=== PATIENT | male | born 1960 | race American Indian/Alaskan Native ===

== ENCOUNTER 2022-03-09 10:11 | Inpatient (IN) | payer MEDICARE ==
--- NOTE | 2022-03-09 10:24 | Emergency Department Report ---
HPI - General Time Seen by Provider: 03/09/22 10:21 - HPI HPI: Charge nurse triage The patient is a 61-year-old male present with a chief complaint of left-sided weakness and aphasia. Per EMS the patient's symptoms were noted to start 09:00 this morning and they include left-sided weakness with aphasia. Per EMS the patient is able to express "yes" and "no" only. ED Past Medical Hx - Past Medical History Hx Hypertension: Yes - Family History Family history: no significant - Social History Smoking Status: Unknown if ever smoked Substance Use Type: None ED Review of Systems ROS: Stated complaint: POSSIBLE STROKE Other details as noted in HPI Constitutional: no symptoms reported Eyes: denies: eye pain Respiratory: no symptoms reported Cardiovascular: denies: chest pain Endocrine: no symptoms reported Physical Exam - Physical Exam Vital Signs: Vital Signs 03/09/22 03/09/22 03/09/22 10:42 10:46 10:54 Pulse Rate 70 89 Respiratory 10 L 23 Rate Blood Pressure 149/76 142/77 O2 Sat by Pulse Oximetry 03/09/22 03/09/22 03/09/22 10:55 11:00 11:08 Pulse Rate 87 78 93 H Respiratory 16 Rate Blood Pressure 142/77 142/77 O2 Sat by Pulse 99 Oximetry 03/09/22 11:15 Pulse Rate 92 H Respiratory 17 Rate Blood Pressure 145/87 O2 Sat by Pulse Oximetry Physical Exam: GENERAL: The patient is well-developed well-nourished male lying on stretcher aphasic. [] HEENT: Normocephalic. Atraumatic. Extraocular motions are intact. Patient has moist mucous membranes. NECK: Supple. Trachea midline CHEST/LUNGS: Clear to auscultation. There is no respiratory distress noted. HEART/CARDIOVASCULAR: Regular. There is no tachycardia. There is no gallop rub or murmur. ABDOMEN: Abdomen is soft, nontender. Patient has normal bowel sounds. There is no abdominal distention. SKIN: There is no rash. There is no edema. There is no diaphoresis. NEURO: The patient is awake and alert. Patient makes eye contact and acknowledges yes or no answers by shaking or nodding his head. The patient is cooperative. Cranial nerves II through XII grossly intact with exception of ri ght facial droop. Positive forehead sparing. MUSCULOSKELETAL: There is no evidence of acute injury. ED Course - Consultations Consultation #1: 03/09/22 10:46 Case discussed with tele-neurologist Dr. Barbosa- recommends tPA after confirming negative CT head with radiology 03/09/22 10:46 CT head discussed with radiologist-no evidence of hemorrhage ED Medical Decision Making - Lab Data Result diagrams: 03/09/22 Unknown 03/09/22 Unknown Laboratory Tests 03/09/22 03/09/22 03/09/22 Unknown Unknown Unknown WBC 6.6 RBC 4.77 Hgb 16.2 H Hct 47.2 H MCV 99 H MCH 34 H MCHC 34 RDW 15.6 H Plt Count 190 Lymph % (Auto) 22.1 Winston % (Auto) 8.8 H Eos % (Auto) 0.6 Baso % (Auto) 0.3 Lymph # (Auto) 1.5 Winston # (Auto) 0.6 Eos # (Auto) 0.0 Baso # (Auto) 0.0 Seg Neutrophils % 68.2 Seg Neutrophils # 4.5 PT 12.4 INR 0.84 L APTT 22.4 L Thrombin Time 13.9 L Sodium 135 L Potassium 3.9 Chloride 101.3 Carbon Dioxide 26 Anion Gap 12 BUN 7 L Creatinine 0.8 Estimated GFR > 60 BUN/Creatinine Ratio 9 Glucose 122 H Calcium 8.7 - EKG Data -: EKG Interpreted by [facility] EKG shows normal: sinus rhythm Rate: normal - EKG Data When compared to previous EKG there are: previous EKG unavailable Interpretation: other (No ischemic changes seen) - Differential Diagnosis CVA Critical care attestation.: If time is entered above; I have spent that time in minutes in the direct care o f this critically ill patient, excluding procedure time. ED Disposition Clinical Impression: Stroke Disposition: 09 ADMITTED INPATIENT Is pt being admited?: Yes Does the pt Need Aspirin: No Condition: Serious Time of Disposition: 11:24 (Care transferred to hospitalist (Dr. Hahn))
[2022-03-09] MEDS ORDERED: ALTEPLASE 100 MG INJ KIT ONE (10:39)
[2022-03-09] MEDS ORDERED: SODIUM CHLORIDE 0.9% 50 ML IVPB IV ONE (10:45)
[2022-03-09] MEDS ORDERED: ALTEPLASE 100 MG INJ KIT IV ONE ×2 (10:45)
--- NOTE | 2022-03-09 10:49 | Cat Scan Report ---
CT HEAD WITHOUT CONTRAST INDICATION : Left-sided weakness, aphasia. TECHNIQUE: Axial imaging performed from the skull apex through the skull base without the use of con trast. Sagittal and coronal reformatted images. All CT scans at this location are performed using C T dose reduction for AL[employer] by means of automated exposure control. COMPARISON: None FINDINGS: Parenchyma: No acute intracranial hemorrhage or parenchymal abnormality. No evidence for mass or ext ra-axial fluid collection. No chronic infarct. Ventricles: Ventricles are normal in size and appear symmetric. Bones: No acute osseous abnormality. Sinuses: Sinuses and mastoid air cells are clear. Soft tissues: Soft tissues including the orbits appear normal. IMPRESSION: No acute abnormality. CODE STROKE: Time of Communication (SCREW CUTTER/CDT): 0939 hours Licensed Practitioner Receiving Report: Dr. Ansari Signer Name: Joseph Rae Jr, MD Signed: 03/09/2022 10:45 AM Workstation Name: [id number]
--- NOTE | 2022-03-09 10:58 | Consultation ---
History of Present Illness History of present illness: [place] [facility] Consult Note # Demographics Consult Type: Acute Stroke Level 1 (0-4.5 hrs) Patient Location: Emergency Room First Name: Edgardo Last Name: Ivan Date of : 1960 Age: 61 Gender: Male Facility: [facility] Time of Initial Page (): 03/09/2022, 10:09 Time of Return Call (): 03/09/2022, 10:10 # HPI History: 61M with HTN, R BKA presents with difficulty breathing. At 0900, started having trouble speaking and feeling weak on the left with asymmetric smile. Last Known Normal: I have collected independent history specific to time last normal or last known well. We have collaborated with the provider and at this time, we have the most current timeline with the information that is available. Possible Thrombolytic candidate: not on warfarin or NOACs no intracranial hemorrhage history no recent major surgery no known active major internal bleeding no known blood disorders # Scores Time of exam and NIHSS (): 03/09/2022, 10:10 Level of Consciousness 1a: [0] = Alert; keenly responsive LOC Questions 1b: [0] = Answers both questions correctly LOC Commands 1c: [0] = Performs both tasks correctly Best Gaze 2: [1] = Partial gaze palsy Visual 3: [0] = No visual loss Facial Palsy 4: [2] = Partial paralysis Motor Arm Left 5a: [0] = No drift Motor Arm Right 5b: [0] = No drift Motor Leg Left 6a: [0] = No drift Motor Leg Right 6b: [0] UN = Amputation or joint fusion Limb Ataxia 7: [0] = Absent Sensory 8: [0] = Normal Best Language 9: [2] = Severe aphasia Dysarthria 10: [2] = Severe dysarthria Extinction and Inattention 11: [0] = No abnormality NIHSS Total: 7 # Data Time Head CT personally read by me (): 03/09/2022, 10:[address]: no bleed per radiologist read CTA Head: no large vessel occlusion preliminarily reviewed by me, please refer to radiology read for official reading CTA Neck: patent vessels preliminarily reviewed by me, please refer to radiology read for official reading # Assessment Impression: Ischemic Stroke (Acute) # Plan Thrombolytic/Intervention: IV Thrombolysis Thrombolytic Dosing: IV alteplase 0.9 mg/kg, max dose 90 mg; 10% of dose given over 1 minute IVP, remaining 90% given as infusion over 1 hour Intraarterial Exclusion: no large vessel occlusion (LVO) Time IV Thrombolytic Recommended ( Time): 03/09/2022, 10:33 Thrombolytic Administration Recommendations: I reviewed the risks/benefits/alternatives of IV thrombolytic therapy with the patient. They understand there is potential of life threatening hemorrhage from IV thrombolysis. I stated that I believe benefits outweighs risk. They wish to proceed with IV thrombolytic therapy. I have collected independent history specific to time last normal or last known well. We have collaborated with the ED provider and at this time, we have the most current timeline with the information that is available. BP goal< 180/105 for 24hrs post Thrombolytic administration Use Labetolol 10-20mg IV prn or Nicardipine gtt to maintain BP parameters No antiplatelets or anticoagulants for next 24 hrs unless indicated for emergent IA procedure or other life threatening situation ICU admission Call back if there is any decline in neurological condition Other: consult on-site neurology service for full work-up and evaluation recommendations I have discussed my recommendations with the referring provider Disposition: admit # Logistics Telemedicine: Interactive 2 way audio and visual telecommunication technology was utilized during this visit Electronically signed at 03/09/2022 10:57 ( Time) by Familia Laura MD Medications and Allergies Allergies Allergy/AdvReac Type Severity Reaction Status Date / Time No Known Allergies Allergy Verified 03/09/22 10:44
[2022-03-09 11:14] LABS: INR 0.84 (0.87-1.13)
[2022-03-09 11:15] LABS: BUN/Creatinine Ratio 9; Blood Urea Nitrogen 7 mg/dL (9-20); Calcium 8.7 mg/dL (8.4-10.2); Hemolysis Index 15; Partial Thromboplastin Time 22.4 Sec. (24.2-36.6); Thrombin Time 13.9 Sec. (15.1-19.6)
--- NOTE | 2022-03-09 11:16 | Cat Scan Report ---
CTA neck without and with intravenous contrast material CLINICAL HISTORY: Left-sided weakness, aphasia TECHNIQUE: Following acquisition of a timing bolus 0.625 mm thick contiguous axial scans were obtained from aort ic arch to the skull base during rapid bolus intravenous contrast infusion. In addition to evaluation of axial source images multiplanar reconstructions were produced and reviewed for this report. 3 michel ne MIP reconstructions were produced and reviewed. Contrast dose report: Omnipaque 350: 100 ml, administered intravenously All CT examinations performed at this facility utilize modulated dose reduction, iterative reconstruc tion or weight-based dosing, as appropriate, to obtain a radiation dose which is as low as can reason ably be achieved. FINDINGS: Thoracic aorta:No abnormalities are identified along the course of the thoracic aorta..The origins of the great vessels have an unremarkable appearance. Brachiocephalic artery, left common carotid arter y origin and left subclavian artery all have an unremarkable appearance. Right carotid artery: Calcified atherosclerotic plaque is observed at the right carotid bulb and leny g the course of the proximal portion of the R ICA. There is no associated stenosis. Right common pryor tid artery has an unremarkable appearance. Left carotid artery: Calcified atherosclerotic plaque is observed along the proximal and mid cervical segments of the LICA. There is no associated stenosis. Posterior circulation:The vertebral arteries have an unremarkable appearance. Both vertebral arteries contribute to the basilar wero study. y origin. The basilar artery has an unremarkable appearance. The degree of stenosis, if any, is determined utilizing NASCET like criteria. In this case there is no indication of hemodynamically significant stenosis at the carotid bifurcations or elsewhere. Evaluation of the nonvascular soft tissue structures reveal no abnormality. There is no indication of cervical lymphadenopathy. No abnormalities are seen along the course of the airway. Visualized porti ons of the parotid glands and the submandibular salivary glands have a normal appearance. Thyroid gla nd has a normal appearance. Evaluation of the lung apices reveals no evidence of lung nodule or infil trate. Evaluation of the cervical spine is remarkable for cervical spondylosis with loss of disc height and anterior osteophyte formation evident at the C4-5, C5-6 and C6-7 levels. There is no indication of ce ntral canal stenosis or neuroforaminal narrowing. IMPRESSION: 1. No indication of hemodynamically significant stenosis at the carotid bifurcations or elsewhere. Note: There is a 1 cm gap between the highest axial image on the CTA neck and the lowest axial image on the CTA examination. The reason for this is not known to me. CTA head with intravenous contrast CLINICAL HISTORY: Left-sided weakness, aphasia TECHNIQUE: 0.625 mm thick contiguous axial scans were obtained from the skull base to the skull vertex during r apid bolus administration of intravenous contrast material. Multiplanar reconstructions were produced in the coronal and sagittal planes. In addition 3 plane MIP instructions were produced and reviewed for this report. The axial source images and reconstructed images were reviewed for this report. CONTRAST DOSE REPORT: Omnipaque 350: 100 ml administered intravenously. All CT scans at this location are performed using CT dose reduction for [employer] by means of automated e xposure control. FINDINGS: Internal carotid arteries: Mildly calcified atherosclerotic plaque is seen along the course of the ca vernous segments of both internal carotid arteries. This extends up through the communicating segment s bilaterally. There is no indication of hemodynamically significant stenosis in this region. Middle cerebral arteries:Normal and symmetrical M1 segments of the middle cerebral arteries are demon strated. No abnormalities are seen on evaluation of the insular or opercular branches. Anterior cerebral arteries:Bilaterally symmetrical A1 segments are demonstrated. No abnormalities are seen along the course of the A2 segments or their visualized pericallosal branches. I do not identif y an anterior communicating artery. Vertebral arteries: Left vertebral artery is dominant. Both vertebral arteries contribute to the basi lar artery origin. Basilar artery:Basilar artery has an unremarkable appearance. Posterior cerebral arteries: origin of the right posterior cerebral artery is noted. A large le ft-sided posterior communicating artery is identified. Otherwise the posterior cerebral arteries have a normal and symmetrical appearance. [place]:Not intact. see above. Dural sinuses: Dural venous sinuses are well demonstrated on this exam. There is no evidence of dural sinus thrombosis. IMPRESSION: No indication of intercranial stenosis or large vessel occlusion. Note: There is a 1 cm gap between the highest axial image on the CTA neck and the lowest axial image on the CTA examination. The reason for this is not known to me. Signer Name: Angel Peña MD Signed: 03/09/2022 11:12 AM Workstation Name: [id number]
[2022-03-09 11:20] LABS: Basophils % (Auto) 0.3 % (0.0-1.8); Eosinophils % (Auto) 0.6 % (0.0-4.3); Hematocrit 47.2 % (35.5-45.6); Hemoglobin 16.2 gm/dl (11.8-15.2); Lymphocytes # (Auto) 1.5 K/mm3 (1.2-5.4); Lymphocytes % (Auto) 22.1 % (13.4-35.0); Mean Corpuscular HGB Conc 34 % (32-34); Mean Corpuscular Volume 99 fl (84-94); Monocytes # (Auto) 0.6 K/mm3 (0.0-0.8); Monocytes % (Auto) 8.8 % (0.0-7.3); Platelet Count 190 K/mm3 (140-440); Red Blood Count 4.77 M/mm3 (3.65-5.03); Red Cell Distribution Width 15.6 % (13.2-15.2)
--- NOTE | 2022-03-09 12:20 | Consultation ---
History of Present Illness Consult date: 03/09/22 Requesting physician: JORJE PERALTA Reason for consult: other (Acute CVA s/p tPA) History of present illness: PULMONARY/CCM CONSULT NOTE (Full dictation # [id number]) Please see dictated notes for full details Medications and Allergies Allergies Allergy/AdvReac Type Severity Reaction Status Date / Time No Known Allergies Allergy Verified 03/09/22 10:44 Physical Examination Vital signs: Vital Signs Pulse Resp 70 10 L 03/09/22 10:42 03/09/22 10:42 Results - Laboratory Findings CBC and BMP: 03/09/22 Unknown 03/09/22 Unknown PT/INR, D-dimer PT 12.4 Sec. (12.2-14.9) 03/09/22 Unknown INR 0.84 (0.87-1.13) L 03/09/22 Unknown Abnormal lab findings: Abnormal Labs 03/09/22 03/09/22 03/09/22 Unknown Unknown Unknown Hgb 16.2 H Hct 47.2 H MCV 99 H MCH 34 H RDW 15.6 H Garvin % (Auto) 8.8 H INR 0.84 L APTT 22.4 L Thrombin Time 13.9 L Sodium 135 L BUN 7 L Glucose 122 H
[2022-03-09] MEDS ORDERED: ONDANSETRON 4 MG/2 ML INJ IV PRN ×2 (14:52→15:36)
[2022-03-09] MEDS ORDERED: ACETAMINOPHEN 325 MG TAB PO PRN ×2 (14:52→15:36)
[2022-03-09] MEDS ORDERED: SODIUM CHLORIDE 0.9% 1000 ML 1,000 ML IV SCH (15:00)
[2022-03-09] MEDS ORDERED: MORPHINE 2 MG/1 ML INJ IV PRN (15:06)
[2022-03-09] MEDS ORDERED: METOCLOPRAMIDE 10 MG/2 ML INJ IV PRN (15:06)
[2022-03-09] MEDS ORDERED: oxyCODONE /ACETAMINOPHEN 5-325MG TAB PO PRN (15:06)
[2022-03-09] MEDS ORDERED: HYDROmorphone 0.5 MG/0.5 ML INJ IV PRN (15:36)
[2022-03-09] MEDS ORDERED: FAMOTIDINE 20 MG/2 ML INJ IV SCH (22:00)
[2022-03-09] MEDS ORDERED: diphenhydrAMINE 25 MG CAP PO PRN (22:02)
--- NOTE | 2022-03-10 03:31 | Consultation ---
DATE OF CONSULTATION: 03/09/2022 PULMONARY CRITICAL CARE CONSULT NOTE CONSULTING PHYSICIAN: Dr. Ansari, Emergency Room physician. REASON FOR CONSULTATION: Acute cerebrovascular accident, status post TPA administration. CHIEF COMPLAINT AND HISTORY OF PRESENT ILLNESS: As follows. The patient is a now 61-year-old obese male with past medical history according to him significant for hypertension, but also right lrjgb-uke-buyr amputation that the daughter says is due to an accident, and not as a result of diabetes or peripheral vascular disease. According to her, he was well last night and this morning he sent the grandkids off to school and he started having trouble around 9:00 a.m. He had called the family. His speech was mumbled. He became aphasic. He complained of weakness in the left side and he had a facial droop. Family very certain that they saw him well prior to 9:00 a.m. and as early as this morning when he sent the children to school. He was evaluated in the Emergency Room and amongst other things he had an NIHSS total score of about [address] scan of the head did not reveal any bleed. The CTA of the head and neck did not reveal any large vessel occlusion. He was diagnosed with acute CVA, deemed a candidate for tissue thromboplastin activator and received 0.9 mg/kg with a max dose of 90 mg. A 10% at the dose was given of 1 minute IV push, a part of the order and then the remaining as an infusion over 1 hour. Post-administration, I stopped by to see him. According to the nurse, he complained of a little bit of some numbness around the right side of his lip during the administration of the dose, but otherwise he has not had any progression. He denied any chest pains. He denied any prior palpitations. He denied being sick prior to this. He denies any tobacco use or abuse whatsoever and has not had any similar presentations like this. This is really as much of the history of presentation as I have. PAST MEDICAL HISTORY: As above, significant for hypertension and a right qvfzk-qyj-dvtw amputation. History of hyperlipidemia. PAST SURGICAL HISTORY: Right arwxa-klv-bouu amputation. MEDICATIONS: He was on at the time I stopped by to see him, according to the medication administration record included the following: He had received TPA and I believe he received 8.6 mg IV once and 77.2 mg IV drip. He received 50 mL of sodium chloride once, otherwise has not received any medication. ALLERGIES: No known drug allergies. DIET: Obese gentleman, acute weight loss or gain history is unknown. FAMILY AND SOCIAL HISTORY: Lives in the community. Denied alcohol, tobacco or illicit drug use or abuse per the daughter, I believe he was in the room. FAMILY HISTORY: Otherwise unknown. REVIEW OF SYSTEMS: Difficult to obtain secondary to patient's medical and mental condition. He denied any headache. He denied any cough. He denied any nausea or vomiting. Since he has been in the Emergency Room, no gross hematochezia or melena, no gross hematuria, no hematemesis, no hemoptysis, no witnessed seizures. Review of systems otherwise unobtainable or as in body of history above. PHYSICAL EXAMINATION: VITAL SIGNS: At presentation, he was afebrile. Pulse was 70, respiratory rate was 10. Blood pressure 149/76, O2 sats at the time I saw him were about 98% on room air. GENERAL: He is an elderly looking male. Normocephalic, atraumatic, talking to me with an obvious aphasia with normal respiratory effort at rest. HEAD, EYES, EARS, NOSE AND THROAT: Anicteric. No conjunctival erythema. Oropharynx is moist, no gross jugular venous distention, no thyromegaly and had a droop to the right side, I believe of his face. Grossly, there were no palpable lymph nodes in the supraclavicular or submandibular lymph node chains. NECK: No gross jugular venous distention, no thyromegaly. He does have a large neck circumference. LUNGS: Auscultation of both lung keyes unremarkable. Good bilateral air movement, slightly diminished breath sounds, otherwise no wheezing. HEART: Sounds 1 and 2 are heard at the time of my evaluation, regular rate and rhythm without overt rubs or murmurs. ABDOMEN: Soft, full, protuberant. Bowel sounds are positive, nontender, no palpable hepatosplenomegaly. EXTREMITIES: Without overt digital clubbing or cyanosis, no pedal edema, has a right itcge-wxy-kuwc amputation, left pedal pulses 2+. NEUROLOGIC: Pupils were equal, round, about 4 mm, reactive to light. Extraocular muscle movements were intact. His tongue deviated, I believe to the right side. He had spontaneous movements to all 4 extremities. No significant drift to his extremities. He did have a severe aphasia as well as a severe dysarthria. SKIN: Normal turgor in the areas I examined without overt cellulitis or rash. Please see the wound care nurses' notes for full description of his skin. PSYCHIATRIC: Mood was normal. Affect was a little bit inappropriate. He had some deficits to his judgment and insight. LABORATORY DATA: From my review are as follows. Laboratory data is pending and will be followed to include chemistries, coagulation parameters and CBC. I do believe these have been reviewed by the Emergency Room staff, but has not yet been updated to the system. RADIOGRAPHIC STUDIES: CT of the head were done. The CT of the head was read as no acute abnormality. CT angio of the head and neck did not reveal any hemodynamically significant stenosis, no large vessel intracranial stenosis or large vessel occlusion. ASSESSMENT: 1. Acute cerebrovascular accident, status post TPA. 2. History of hypertension. 3. History of hyperlipidemia. 4. Obesity. 5. Dysarthria. PLAN: He has received TPA. He will be observed in the Critical Care Unit at least 24 hours. Neurology consultation has been placed. Teleneurology. He will be seen by the neurologist later. Secondary prevention measures will be started right away. Blood pressure control. We await his lipid profile and this will be addressed as necessary. So far, no large vessel occlusion. He will need a swallow evaluation prior to feeding. He may well have passed a bedside dysphagia screen, but we need to be careful for aspiration. Oxygen will be offered as necessary to keep O2 sats greater than or equal to about 90%. Aspiration precautions will be maintained. He will be placed on GI prophylaxis with Pepcid. I will do IV Pepcid for now. DVT prophylaxis, on anticoagulation once the TPA period is over. Flu and pneumonia vaccination will be addressed per protocol. Tobacco abstinence and continued tobacco abstinence has been encouraged. Thank you very much for the consult. We will follow along and make further recommendations as picture progresses/becomes clearer. Hopefully, there is no further progression of the stroke. He is critically ill at risk of from neurologic system decompensation and hematologic system decompensation at this point and I spent about 35-40 minutes of critical care time without overlap and excluding any procedural time that may be necessary. TID: [id number] RECEIPT: [id number] CELESTE/DANA
[2022-03-10 05:10] LABS: Basophils % (Auto) 0.4 % (0.0-1.8); Eosinophils % (Auto) 0.5 % (0.0-4.3); Hematocrit 46.9 % (35.5-45.6); Hemoglobin 16.2 gm/dl (11.8-15.2); Lymphocytes # (Auto) 2.6 K/mm3 (1.2-5.4); Lymphocytes % (Auto) 41.5 % (13.4-35.0); Mean Corpuscular HGB Conc 35 % (32-34); Mean Corpuscular Volume 99 fl (84-94); Monocytes # (Auto) 0.7 K/mm3 (0.0-0.8); Monocytes % (Auto) 11.5 % (0.0-7.3); Platelet Count 193 K/mm3 (140-440); Red Blood Count 4.74 M/mm3 (3.65-5.03); Red Cell Distribution Width 15.5 % (13.2-15.2)
[2022-03-10 05:33] LABS: Alanine Aminotransferase 13 units/L (7-56); Albumin 3.9 g/dL (3.9-5); BUN/Creatinine Ratio 8; Blood Urea Nitrogen 6 mg/dL (9-20); Calcium 8.8 mg/dL (8.4-10.2); HDL Cholesterol 64 mg/dL (40-59); Hemolysis Index 9; LDL Cholesterol,Direct 80 mg/dL (50-130)
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
[2022-03-10] MEDS ORDERED: ASPIRIN 81 MG TAB CHEW PO SCH (11:00)
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
--- NOTE | 2022-03-10 15:47 | Cat Scan Report ---
CT HEAD WITHOUT CONTRAST INDICATION : 24 HRS post TPA. TECHNIQUE: Axial imaging performed from the skull apex through the skull base without the use of con trast. Sagittal and coronal reformatted images. All CT scans at this location are performed using C T dose reduction for ALARA by means of automated exposure control. COMPARISON: 03/09/2022 FINDINGS: Parenchyma: Negative diminished attenuation in the posterior left frontal lobe has developed measuri ng up to 4.4 x 3.5 x 2.5 cm consistent with an evolving infarct. Mild petechial hemorrhagic change marcos s developed at the infarct site. No large uncontained hemorrhage. The remaining brain density remains normal. No extra-axial fluid collection. Ventricles: Ventricles are normal in size and appear symmetric. Bones: No acute osseous abnormality. Sinuses: Sinuses and mastoid air cells are clear. Soft tissues: Soft tissues including the orbits appear normal. IMPRESSION: Evolving left frontal infarct as described. There is mild petechial hemorrhagic change at the infarct site. Signer Name: Joseph Rae Jr, MD Signed: 03/10/2022 3:42 PM Workstation Name: [id number]
--- NOTE | 2022-03-10 16:24 | Vascular Lab Report ---
DUPLEX DOPPLER ULTRASOUND CAROTID, BILATERAL INDICATION / CLINICAL INFORMATION: CVA. COMPARISON: CTA neck performed yesterday. FINDINGS: RIGHT CAROTID: Mild to moderate atherosclerotic plaque. - PLAQUE ESTIMATE (%): < 50% - CCA velocity: 95 cm/sec. - ICA peak systolic velocity: 76 cm/sec. - ICA/CCA PSV Ratio: 0.8 Right Vertebral Artery: Antegrade flow. LEFT CAROTID: Mild atherosclerotic plaque. - PLAQUE ESTIMATE (%): < 50% - CCA velocity: 87 cm/sec. - ICA peak systolic velocity: 88 cm/sec. - ICA/CCA PSV Ratio: 1.0 Left Vertebral Artery: Antegrade flow. IMPRESSION: 1. Right Internal Carotid Artery: Less than 50% diameter stenosis. 2. Left Internal Carotid Artery: Less than 50% diameter stenosis. Velocity criteria are extrapolated from diameter data as defined by the Society of Radiologists in Ul trasound Consensus Conference, Radiology 2003; 229;340-346. NO STENOSIS (NORMAL) - Plaque = none; ICA PSV < 125 cm/sec; ICA/CCA PSV Ratio < 2.0 <50% STENOSIS - Plaque < 50%; ICA PSV < 125 cm/sec; ICA/CCA PSV Ratio < 2.0 50-69% STENOSIS - Plaque > 50%; ICA PSV = 125-230 cm/sec; ICA/CCA PSV Ratio = 2.0-4.0 >70% BUT <100% STENOSIS - Plaque > 50%; ICA PSV > 230 cm/sec; ICA/CCA PSV Ratio > 4.0 NEAR OCCLUSION - Plaque = visible lumen; ICA PSV = high/low/none; ICA/CCA PSV Ratio = variable TOTAL OCCLUSION - Plaque = no lumen; ICA PSV = none; ICA/CCA PSV Ratio = N/A Scribed by: Nery Jain RDMS, RVT, RMSKS Scribed: 03/10/2022 2:15 PM I have reviewed the images, agree with this report, and edited this report as needed. Signer Name: Charles Hinson MD Signed: 03/10/2022 4:19 PM Workstation Name: [id number]
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
[2022-03-10] MEDS: FAMOTIDINE 20 MG TAB PO SCH (21:31)
[2022-03-10] MEDS ORDERED: ENOXAPARIN 40 MG/0.4 ML INJ SUB-Q SCH (22:00)
[2022-03-11 06:11] LABS: Hematocrit 47.6 % (35.5-45.6); Hemoglobin 16.3 gm/dl (11.8-15.2); Mean Corpuscular HGB Conc 34 % (32-34); Mean Corpuscular Volume 99 fl (84-94); Platelet Count 167 K/mm3 (140-440); Red Cell Distribution Width 15.4 % (13.2-15.2)
[2022-03-11 06:18] LABS: INR 0.94 (0.87-1.13)
[2022-03-11 06:25] LABS: BUN/Creatinine Ratio 8; Blood Urea Nitrogen 6 mg/dL (9-20); Hemolysis Index 8
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
--- NOTE | 2022-03-11 10:22 | Progress Note ---
Assessment and Plan Assessment and Plan Assessment and plan: 51-year-old -[place] male with past medical history of hypertension comes in for acute onset of left-sided weakness associated with aphasia which started 1 hour ago. Patient could not move left upper extremity and left lower extremity and left side of the face. Also not able to talk. Code stroke was initiated. Patient was given tPA in the emergency room because the patient was in the window period Of treatment. ED course: Patient has dramatic improvement in her left upper extremity and left lower ovary extremity weakness. Improved to near 5 by/5 power during my examination after 4 to 6 hours. Initially patient was totally paralyzed on the left side with left facial droop and aphasia. Patient able to tolerate with slight dysarthria. - Patient Problems # New onset of possibly right side weakness with aphasia ++ According to record it was left side weakness ? and aphasia improved after TPA ++ Today he is with residual right side weakness and expressive aphasia ++ sp TPA ++ initial NIH#7-- today is #4 +++ can not have MRI due to metal left chest region +++ CT brain and CTA brain and neck are unremarkable +++ LDL#80-- Lipitor 40 mg daily +++echo is pending +++ PT/ST evaluate +++ US carotid<50 % bilateral +++ Repeat CT brain-- showed left frontal new CVA with hemorrhagic t ransformation +++ Hold ASA and SQ heparine +++ Repaet CT brain am # Hypertension - Allow 24 hours of permissive HTN<220/110 - Adjust BP medication there after to <150/80 -Continue antihypertensives and adjust medications # Nicotine dependence -Patient counseled about stopping smoking -NicoDerm patch initiated -Alternatives of Chantix/Effexor/NicoDerm patch/nicotine gum offered # DVT prophylaxis -To start heparin from tomorrow -GI prophylaxis -Aspirin after review MRI brain /repeat CT brain in 24 hours r/o bleed # Advance care planning -Disease education conducted, care plan discussed, -diagnosis discussed, - prognosis discussed. - Patient is full code. Subjective Date of service: 03/11/22 Interval history: Alert frustrated due to significant speech problem/aphasia expressive slight right side weakness could not have MRI brain due to ? metal plate in chest Repeat CT brain is remarkable for new left frontal CVA with hemorrhagic transformation ASA and SQ heparine on hold Echo is pending LDl#80 US carotid <50% bilateral Objective - Vital Sign Vital Signs - 12hr 03/11/22 03/11/22 03/11/22 04:00 05:00 08:08 Temperature 98.8 F 98.6 F Pulse Rate 60 59 L 55 L Respiratory 18 18 Rate Blood Pressure 142/88 Blood Pressure 150/83 [Right] O2 Sat by Pulse 98 99 Oximetry - General Apperance Constitutional: uncomfortable - EENT EENT: PERRL, mucous membranes moist - Respiratory Respiratory: lungs clear, rhonchi - Cardiovascular Cardiovascular: regular rate, normal S1, normal S2 Extremities: no peripheral edema bilat, no clubbing, cyanosis - Gastrointestinal Gastrointestinal: normoactive bowel sounds - Integumentary Integumentary: normal - Neurologic Cranial nerve examination: PERRL, EOMI, facial droop Speech examination: motor aphasia Detailed motor examination: other (slight right side weakness ,right BKA) - Laboratory Findings CBC and BMP: 03/11/22 05:31 03/11/22 05:31 Abnormal Lab Findings: Abnormal Labs 03/09/22 03/09/22 03/09/22 10:18 Unknown Unknown Hgb 16.2 H Hct 47.2 H MCV 99 H MCH 34 H MCHC RDW 15.6 H Lymph % (Auto) [place] % (Auto) 8.8 H INR 0.84 L APTT 22.4 L Thrombin Time 13.9 L Sodium BUN Glucose POC Glucose 126 H HDL Cholesterol 03/09/22 03/10/22 03/10/22 Unknown 04:43 04:43 Hgb 16.2 H Hct 46.9 H MCV 99 H MCH 34 H MCHC 35 H RDW 15.5 H Lymph % (Auto) 41.5 H [place] % (Auto) 11.5 H INR APTT Thrombin Time Sodium 135 L BUN 7 L 6 L Glucose 122 H POC Glucose HDL Cholesterol 64 H 03/11/22 03/11/22 05:31 05:31 Hgb 16.3 H Hct 47.6 H MCV 99 H MCH 34 H MCHC RDW 15.4 H Lymph % (Auto) [place] % (Auto) INR APTT Thrombin Time Sodium 136 L BUN 6 L Glucose 101 H POC Glucose HDL Cholesterol
[2022-03-11] MEDS: amLODIPine 10 MG TAB PO SCH (11:20)
[2022-03-11] MEDS: LOSARTAN 50 MG TAB PO SCH (11:20)
--- NOTE | 2022-03-11 12:03 | Electrocardiograph Report ---
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
[2022-03-11] MEDS: FAMOTIDINE 20 MG TAB PO SCH (21:30)
--- NOTE | 2022-03-12 08:34 | Cat Scan Report ---
CT HEAD WITHOUT CONTRAST INDICATION : CVA and hemorrhage. TECHNIQUE: Axial imaging performed from the skull apex through the skull base without the use of con trast. Sagittal and coronal reformatted images. All CT scans at this location are performed using C T dose reduction for ALARA by means of automated exposure control. COMPARISON: 03/10/2022 FINDINGS: Parenchyma: Evolving infarct in the left posterior frontal lobe appears stable in size and contour. Mild to moderate hemorrhagic change at the infarct site has increased slightly since the previous exa m. Again, no large uncontained hemorrhage has developed. No extra-axial fluid collection. No new area s of abnormal brain density are identified. Ventricles: Ventricles are normal in size and appear symmetric. Bones: No acute osseous abnormality. Sinuses: Sinuses and mastoid air cells are clear. Soft tissues: Soft tissues including the orbits appear normal. IMPRESSION: Evolving left frontal infarct with mild increased hemorrhagic change as described. Signer Name: Joseph Rae Jr, MD Signed: 03/12/2022 8:30 AM Workstation Name: [id number]
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
--- NOTE | 2022-03-12 10:01 | Progress Note ---
Assessment and Plan Assessment and Plan Assessment and plan: 51-year-old -Congolese male with past medical history of hypertension comes in for acute onset of left-sided weakness associated with aphasia which started 1 hour ago. Patient could not move left upper extremity and left lower extremity and left side of the face. Also not able to talk. Code stroke was initiated. Patient was given tPA in the emergency room because the patient was in the window period Of treatment. ED course: Patient has dramatic improvement in her left upper extremity and left lower ovary extremity weakness. Improved to near 5 by/5 power during my examination after 4 to 6 hours. Initially patient was totally paralyzed on the left side with left facial droop and aphasia. Patient able to tolerate with slight dysarthria. - Patient Problems # New onset of possibly right side weakness with aphasia ++ According to record it was left side weakness ? and aphasia improved after TPA ++ Today he is with residual right side weakness and expressive aphasia ++ sp TPA ++ initial NIH#7-- today is #4 +++ can not have MRI due to metal left chest region +++ CT brain and CTA brain and neck are unremarkable +++ LDL#80-- Lipitor 40 mg daily +++echo is with LVD with Ef#50-55% ? bubble study , he is with mild left atrial dilatation +++ PT/ST evaluate +++ US carotid<50 % bilateral +++ Repeat CT brain-- showed left frontal new CVA with hemorrhagic transformation--slightly worse today +++ Hold ASA and SQ heparine +++ Repaet CT brain prn +++ Need bubble study and or AGNES +++ cardiac monitoring # Hypertension - Allow 24 hours of permissive HTN<220/110 - Adjust BP medication there after to <150/80 -Continue antihypertensives and adjust medications # Nicotine dependence -Patient counseled about stopping smoking -NicoDerm patch initiated -Alternatives of Chantix/Effexor/NicoDerm patch/nicotine gum offered # DVT prophylaxis -To start heparin from tomorrow -GI prophylaxis -Aspirin after review MRI brain /repeat CT brain in 24 hours r/o bleed # Advance care planning -Disease education conducted, care plan discussed, -diagnosis discussed, - prognosis discussed. - Patient is full code. Subjective Date of service: 03/12/22 Principal diagnosis: 51-year-old male with known history of HTN admitted for acute CVA s/p TPA Interval history: Alert frustrated due to significant speech problem/aphasia expressive slight right side weakness could not have MRI brain due to ? metal plate in chest Repeat CT brain today is suggestive of slight increase in bleeding in left frontal ASA and SQ heparine on hold Echo is pending LDl#80 US carotid <50% bilateral Objective - Vital Sign Vital Signs - 12hr 03/11/22 03/11/22 03/12/22 22:00 22:26 03:17 Temperature 98.4 F 98.3 F Pulse Rate 73 71 56 L Respiratory 18 18 Rate Blood Pressure 154/85 155/88 O2 Sat by Pulse 98 98 99 Oximetry - General Apperance Constitutional: comfortable - EENT EENT: PERRL, mucous membranes moist - Respiratory Respiratory: lungs clear, rhonchi - Cardiovascular Cardiovascular: regular rate, normal S1, normal S2 Extremities: no peripheral edema bilat - Gastrointestinal Gastrointestinal: normoactive bowel sounds - Integumentary Integumentary: normal - Neurologic Cranial nerve examination: PERRL, EOMI, facial droop Speech examination: motor aphasia Detailed motor examination: other (right upper 4-/5 right lower BKA with 4/5 strength, gait not done) - Laboratory Findings CBC and BMP: 03/11/22 05:31 03/11/22 05:31 Abnormal Lab Findings: Abnormal Labs 03/09/22 03/09/22 03/09/22 10:18 Unknown Unknown Hgb 16.2 H Hct 47.2 H MCV 99 H MCH 34 H MCHC RDW 15.6 H Lymph % (Auto) [place] % (Auto) 8.8 H INR 0.84 L APTT 22.4 L Thrombin Time 13.9 L Sodium BUN Glucose POC Glucose 126 H HDL Cholesterol 03/09/22 03/10/22 03/10/22 Unknown 04:43 04:43 Hgb 16.2 H Hct 46.9 H MCV 99 H MCH 34 H MCHC 35 H RDW 15.5 H Lymph % (Auto) 41.5 H [place] % (Auto) 11.5 H INR APTT Thrombin Time Sodium 135 L BUN 7 L 6 L Glucose 122 H POC Glucose HDL Cholesterol 64 H 03/11/22 03/11/22 05:31 05:31 Hgb 16.3 H Hct 47.6 H MCV 99 H MCH 34 H MCHC RDW 15.4 H Lymph % (Auto) [place] % (Auto) INR APTT Thrombin Time Sodium 136 L BUN 6 L Glucose 101 H POC Glucose HDL Cholesterol
[2022-03-12] MEDS: amLODIPine 10 MG TAB PO SCH (10:42)
[2022-03-12] MEDS: LOSARTAN 50 MG TAB PO SCH (10:42)
--- NOTE | 2022-03-12 12:12 | Progress Note ---
Subjective Date of service: 03/12/22 Principal diagnosis: 51-year-old male with known history of HTN admitted for acute CVA s/p TPA Interval history: NSGY update: imaging studies reviewed. There is evolving left frontal infarct with hemorrhagic conversion. There is adjacent edema with mild mass effect. Recommend MRI brain without contrast to further evaluate the infarct. There is no present role for neurosurgical intervention. Full consult note to follow. Objective - Vital Sign Vital Signs - 12hr 03/12/22 03:17 Temperature 98.3 F Pulse Rate 56 L Respiratory 18 Rate Blood Pressure 155/88 O2 Sat by Pulse 99 Oximetry - Laboratory Findings CBC and BMP: 03/11/22 05:31 03/11/22 05:31 Abnormal Lab Findings: Abnormal Labs 03/09/22 03/09/22 03/09/22 10:18 Unknown Unknown Hgb 16.2 H Hct 47.2 H MCV 99 H MCH 34 H MCHC RDW 15.6 H Lymph % (Auto) [place] % (Auto) 8.8 H INR 0.84 L APTT 22.4 L Thrombin Time 13.9 L Sodium BUN Glucose POC Glucose 126 H HDL Cholesterol 03/09/22 03/10/22 03/10/22 Unknown 04:43 04:43 Hgb 16.2 H Hct 46.9 H MCV 99 H MCH 34 H MCHC 35 H RDW 15.5 H Lymph % (Auto) 41.5 H [place] % (Auto) 11.5 H INR APTT Thrombin Time Sodium 135 L BUN 7 L 6 L Glucose 122 H POC Glucose HDL Cholesterol 64 H 03/11/22 03/11/22 05:31 05:31 Hgb 16.3 H Hct 47.6 H MCV 99 H MCH 34 H MCHC RDW 15.4 H Lymph % (Auto) [place] % (Auto) INR APTT Thrombin Time Sodium 136 L BUN 6 L Glucose 101 H POC Glucose HDL Cholesterol
--- NOTE | 2022-03-12 13:52 | Progress Note ---
Assessment and Plan Assessment and plan: #Acute CVA (Cerebrovascular Accident) #Expressive aphasia - Presented with acute onset of left-sided weakness associated with aphasia which started 1 hour prior to admit - initial CT head/brain with no acute intracranial abnormality; CTA Neck/head with no significant stenosis; Carotid doppler less than 50% stenosis bilaterally - s/p tPA and ICU observation - Patient is not a candidate for MRI due to hx of metal plate on left side of body - Neurology consulted, appreciated recommendations - Repeat CT head shows L frontal lobe evolving infarct; Neurosurgery consulted - TTE shows LVEF of 50-55%, mild diastolic dysfunction, no PFO - AGNES ordered per Neurology recommendations - continue statin; ASA stopped due to possible hemorrhagic conversion - Continue Neuro check per protocol - patient to receive ST with HH & discharge #Hypertension - Continue blood pressure monitor per protocol - continue permissive HTN due to above CT findings (maintain BP <220/110) - Use PRN antihypertensive agent to maintain BP parameters if needed #Nicotine Dependence #tobacco cessation counseling -continue nicotine patch -Smoking cessation counseling, supportive care, behavior change counseling, +15 minutes. #DVT Prophylaxis -will hold blood thinners due to new CT findings, will continue with SCDs #Advanced care planning -Disease education conducted, care plan discussed, diagnoses discussed, prognosis discussed, and patient acknowledges understanding with care plan -Time: +30 min History Interval history: No acute events overnight. Patient updated about current care plan. He has no complaints at this time. Hospitalist Physical - Physical exam Narrative exam: GENERAL: Well-developed well-nourished. Sitting in the bed in no acute distress. HEENT: Right-sided facial droop improving. Mildly dysarthric speech. NECK: Supple. CHEST/LUNGS: CTAB on room air HEART/CARDIOVASCULAR: RRR. No murmur, rubs or gallops appreciated. ABDOMEN: +BS. NT/ND. SKIN: No rashes noted. NEURO: No focal motor deficit. Follows all commands. MUSCULOSKELETAL: No joint effusion EXTREMITIES: Right lower extremity AKA. No cyanosis, clubbing or edema. PSYCH: Cooperative. - Constitutional Vitals: Temp Pulse Resp BP Pulse Ox 98.3 F 93 H 18 155/88 98 03/12/22 03:17 03/12/22 10:00 03/12/22 03:17 03/12/22 03:17 03/12/22 10:00 General appearance: Present: no acute distress, well-nourished, obese Results - Labs CBC & Chem 7: 03/11/22 05:31 03/13/22 04:46 Labs: Laboratory Last Values WBC 6.0 K/mm3 (4.5-11.0) 03/11/22 05:31 RBC 4.80 M/mm3 (3.65-5.03) 03/11/22 05:31 Hgb 16.3 gm/dl (11.8-15.2) H 03/11/22 05:31 Hct 47.6 % (35.5-45.6) H 03/11/22 05:31 MCV 99 fl (84-94) H 03/11/22 05:31 MCH 34 pg (28-32) H 03/11/22 05:31 MCHC 34 % (32-34) 03/11/22 05:31 RDW 15.4 % (13.2-15.2) H 03/11/22 05:31 Plt Count 167 K/mm3 (140-440) 03/11/22 05:31 Lymph % (Auto) 41.5 % (13.4-35.0) H 03/10/22 04:43 [place] % (Auto) 11.5 % (0.0-7.3) H 03/10/22 04:43 Eos % (Auto) 0.5 % (0.0-4.3) 03/10/22 04:43 Baso % (Auto) 0.4 % (0.0-1.8) 03/10/22 04:43 Lymph # (Auto) 2.6 K/mm3 (1.2-5.4) 03/10/22 04:43 [place] # (Auto) 0.7 K/mm3 (0.0-0.8) 03/10/22 04:43 Eos # (Auto) 0.0 K/mm3 (0.0-0.4) 03/10/22 04:43 Baso # (Auto) 0.0 K/mm3 (0.0-0.1) 03/10/22 04:43 Seg Neutrophils % 46.1 % (40.0-70.0) 03/10/22 04:43 Seg Neutrophils # 2.9 K/mm3 (1.8-7.7) 03/10/22 04:43 PT 13.6 Sec. (12.2-14.9) 03/11/22 05:31 INR 0.94 (0.87-1.13) 03/11/22 05:31 APTT 22.4 Sec. (24.2-36.6) L 03/09/22 Unknown Thrombin Time 13.9 Sec. (15.1-19.6) L 03/09/22 Unknown Sodium 136 mmol/L (137-145) L 03/11/22 05:31 Potassium 4.1 mmol/L (3.6-5.0) 03/11/22 05:31 Chloride 98.6 mmol/L (98-107) 03/11/22 05:31 Carbon Dioxide 24 mmol/L (22-30) 03/11/22 05:31 Anion Gap 18 mmol/L 03/11/22 05:31 BUN 6 mg/dL (9-20) L 03/11/22 05:31 Creatinine 0.8 mg/dL (0.8-1.3) 03/11/22 05:31 Estimated GFR > 60 ml/min 03/11/22 05:31 BUN/Creatinine Ratio 8 % 03/11/22 05:31 Glucose 101 mg/dL (75-100) H 03/11/22 05:31 POC Glucose 126 mg/dL (70-105) H 03/09/22 10:18 Hemoglobin A1c 5.6 % (4-6) 03/11/22 05:31 Calcium 9.0 mg/dL (8.4-10.2) 03/11/22 05:31 Total Bilirubin 0.60 mg/dL (0.1-1.2) 03/10/22 04:43 AST 16 units/L (5-40) 03/10/22 04:43 ALT 13 units/L (7-56) 03/10/22 04:43 Alkaline Phosphatase 69 units/L (35-129) 03/10/22 04:43 Total Protein 6.7 g/dL (6.3-8.2) 03/10/22 04:43 Albumin 3.9 g/dL (3.9-5) 03/10/22 04:43 Albumin/Globulin Ratio 1.4 % 03/10/22 04:43 Triglycerides 63 mg/dL (2-149) 03/10/22 04:43 Cholesterol 154 mg/dL (50-199) 03/10/22 04:43 LDL Cholesterol Direct 80 mg/dL (50-130) 03/10/22 04:43 HDL Cholesterol 64 mg/dL (40-59) H 03/10/22 04:43 Cholesterol/HDL Ratio 2.40 % 03/10/22 04:43 Harkins/IV: Voiding Method Urinal Active Medications - Current Medications Current Medications: Generic Name Dose Route Start Last Admin Trade Name Freq PRN Reason Stop Dose Admin Acetaminophen 650 mg 03/09/22 15:36 Acetaminophen 325 Mg Tab PO Q4H PRN Pain MILD(1-3)/Fever >100.5/NAVARRO Amlodipine Besylate 10 mg 03/11/22 10:00 03/12/22 10:42 Amlodipine 10 Mg Tab PO 10 mg DAILY YESSICA Administration Atorvastatin Calcium 40 mg 03/10/22 22:00 03/11/22 21:30 Atorvastatin 40 Mg Tab PO 40 mg QHS YESSICA Administration Famotidine 20 mg 03/10/22 22:00 03/11/22 21:30 Famotidine 20 Mg Tab PO 20 mg QHS YESSICA Administration Losartan Potassium 50 mg 03/11/22 10:00 03/12/22 10:42 Losartan 50 Mg Tab PO 50 mg QDAY YESSICA Administration Metoclopramide HCl 10 mg 03/09/22 15:06 Metoclopramide 10 Mg/2 Ml Inj IV Q6H PRN Nausea And Vomiting Ondansetron HCl 4 mg 03/09/22 14:52 Ondansetron 4 Mg/2 Ml Inj IV Q8H PRN Nausea And Vomiting Oxycodone/Acetaminophen 1 tab 03/09/22 15:06 03/11/22 06:27 Oxycodone /Acetaminophen 5-325mg Tab PO 1 tab Q6H PRN Administration Pain, Moderate (4-6) Sodium Chloride 10 ml 03/09/22 22:00 03/12/22 10:43 Sodium Chloride 0.9% 10 Ml Flush Syringe IV 10 ml BID YESSICA Administration Sodium Chloride 10 ml 03/09/22 15:36 Sodium Chloride 0.9% 10 Ml Flush Syringe IV PRN PRN LINE FLUSH
[2022-03-12] MEDS: FAMOTIDINE 20 MG TAB PO SCH (21:11)
[2022-03-13 05:37] LABS: BUN/Creatinine Ratio 10; Blood Urea Nitrogen 9 mg/dL (9-20); Hemolysis Index 9
[2022-03-13] MEDS ORDERED: propofoL 200 MG/20 ML VIAL IV ONE ×2 (08:18)
[2022-03-13] MEDS ORDERED: SODIUM CHLORIDE 0.9% 1000 ML 1,000 ML IV SCH (08:30)
--- NOTE | 2022-03-13 08:48 | Progress Note ---
Assessment and Plan 51-year-old -Maltese male with past medical history of hypertension comes in for acute onset of left-sided weakness associated with aphasia which started 1 hour ago. Patient could not move left upper extremity and left lower extremity and left side of the face. Also not able to talk. Code stroke was initiated. Patient was given tPA in the emergency room because the patient was in the window period Of treatment. ED course: Patient has dramatic improvement in her left upper extremity and left lower ovary extremity weakness. Patient able to talk with slight dysarthria. Patient has history of right BKA. Patient denies any history of smoking cigaretts. He says he smokes marijuana. Denies alcohol abuse. Worked with [employer]. ([employer]) . Not and has three children. No Known drug allergies. Patient awake. Resting on room air. O2 saturation 95%. No acute respiratory distress. Patient running low grade temp. No leukocytosis. Blood pressure 168/100, Pulse 78, respirations 18. No chest xray done. Recommend to get chest xray. Patient is on blood pressure medication, Amalodipine and Cozzar. Management as primary care. Patient is on Famotidine. - Patient Problems (1) Acute CVA (cerebrovascular accident) Status: Acute Plan to address problem: Patient received TPA. Management as per primary care and neurology. (2) Hypertension Status: Chronic Qualifiers: Hypertension type: primary hypertension Qualified Code(s): I10 - Essential (primary) hypertension Plan to address problem: Management as per primary care. (3) Marijuana dependence Status: Acute Plan to address problem: Counseled to stop Marijuana smoking. Subjective Date of service: 03/13/22 Principal diagnosis: 51-year-old male with known history of HTN admitted for acute CVA s/p TPA Interval history: 51-year-old -Maltese male with past medical history of hypertension comes in for acute onset of left-sided weakness associated with aphasia which started 1 hour ago. Patient could not move left upper extremity and left lower extremity and left side of the face. Also not able to talk. Code stroke was initiated. Patient was given tPA in the emergency room because the patient was in the window period Of treatment. ED course: Patient has dramatic improvement in her left upper extremity and left lower ovary extremity weakness. Patient able to talk with slight dysarthria. Patient has history of right BKA. Patient denies any history of smoking cigaretts. He says he smokes marijuana. Denies alcohol abuse. Worked with [employer]. ([employer]) . Not and has three children. No Known drug allergies. Patient awake. Resting on room air. O2 saturation 95%. No acute respiratory distress. Patient running low grade temp. No leukocytosis. Blood pressure 168/100, Pulse 78, respirations 18. No chest xray done. Recommend to get chest xray. Patient is on blood pressure medication, Amalodipine and Cozzar. Management as primary care. Patient is on Famotidine. Objective Vital Signs - 12hr 03/12/22 03/13/22 03/13/22 22:00 00:14 06:00 Temperature 98.2 F 98.0 F Pulse Rate 61 74 Respiratory 18 18 Rate Blood Pressure 148/86 150/89 O2 Sat by Pulse 98 99 Oximetry Constitutional: no acute distress, alert, other (expressive aphasia) Eyes: non-icteric ENT: oropharynx moist Neck: supple, no lymphadenopathy Effort: normal Ascultation: Bilateral: clear Cardiovascular: regular rate and rhythm, other (S1,S2) Gastrointestinal: normoactive bowel sounds Integumentary: normal Extremities: no cyanosis, no edema, pink and warm, pulses normal, other (s/p right BKA) Neurologic: non-focal exam, pupils equal and round, other (Expressive aphasia) Psychiatric: mood appropriate, affect normal CBC and BMP: 03/11/22 05:31 03/13/22 04:46 ABG, PT/INR, D-dimer: PT/INR, D-dimer PT 13.6 Sec. (12.2-14.9) 03/11/22 05:31 INR 0.94 (0.87-1.13) 03/11/22 05:31 Abnormal lab findings: Abnormal Labs 03/09/22 03/09/22 03/09/22 10:18 Unknown Unknown Hgb 16.2 H Hct 47.2 H MCV 99 H MCH 34 H MCHC RDW 15.6 H Lymph % (Auto) [place] % (Auto) 8.8 H INR 0.84 L APTT 22.4 L Thrombin Time 13.9 L Sodium Chloride BUN Glucose POC Glucose 126 H HDL Cholesterol 03/09/22 03/10/22 03/10/22 Unknown 04:43 04:43 Hgb 16.2 H Hct 46.9 H MCV 99 H MCH 34 H MCHC 35 H RDW 15.5 H Lymph % (Auto) 41.5 H [place] % (Auto) 11.5 H INR APTT Thrombin Time Sodium 135 L Chloride BUN 7 L 6 L Glucose 122 H POC Glucose HDL Cholesterol 64 H 03/11/22 03/11/22 03/13/22 05:31 05:31 04:46 Hgb 16.3 H Hct 47.6 H MCV 99 H MCH 34 H MCHC RDW 15.4 H Lymph % (Auto) [place] % (Auto) INR APTT Thrombin Time Sodium 136 L 135 L Chloride 97.9 L BUN 6 L Glucose 101 H 111 H POC Glucose HDL Cholesterol Allied health notes reviewed: nursing
[2022-03-13] MEDS ORDERED: BENZOCAINE 20% TOP SPRAY 0.5 ML UNIT DOSE MM NR (09:00)
--- NOTE | 2022-03-13 11:03 | Progress Note ---
Assessment and Plan Assessment and Plan Assessment and plan: 51-year-old -Malagasy male with past medical history of hypertension comes in for acute onset of left-sided weakness associated with aphasia which started 1 hour ago. Patient could not move left upper extremity and left lower extremity and left side of the face. Also not able to talk. Code stroke was initiated. Patient was given tPA in the emergency room because the patient was in the window period Of treatment. ED course: Patient has dramatic improvement in her left upper extremity and left lower ovary extremity weakness. Improved to near 5 by/5 power during my examination after 4 to 6 hours. Initially patient was totally paralyzed on the left side with left facial droop and aphasia. Patient able to tolerate with slight dysarthria. - Patient Problems # New onset of possibly right side weakness with aphasia ++ Today he is with residual right side weakness and expressive aphasia ++ sp TPA ++ initial NIH#7-- today is #4 +++ can not have MRI due to metal left chest region +++ CT brain and CTA brain and neck are remarkable for mild atherosclerotic changes intra cranial ICA +++ LDL#80-- Lipitor 40 mg daily +++echo is with LVD with Ef#50-55% ? bubble study , he is with mild left atrial dilatation +++ PT/ST evaluate +++ US carotid<50 % bilateral +++ Repeat CT brain-- showed left frontal new CVA with hemorrhagic transformation--slightly worse today +++ Hold ASA and SQ heparine +++ Repaet CT brain prn +++ Need AGNES +++ cardiac monitoring # Hypertension - Allow 24 hours of permissive HTN<220/110 - Adjust BP medication there after to <150/80 -Continue antihypertensives and adjust medications # Nicotine dependence -Patient counseled about stopping smoking -NicoDerm patch initiated -Alternatives of Chantix/Effexor/NicoDerm patch/nicotine gum offered # DVT prophylaxis -To start heparin from tomorrow -GI prophylaxis -Aspirin after review MRI brain /repeat CT brain in 24 hours r/o bleed # Advance care planning -Disease education conducted, care plan discussed, -diagnosis discussed, - prognosis discussed. - Patient is full code. PLAN 1- Hold ASA and SQ heparine for now 2- NS is evaluating 3- can not have mRI due to metal plate? 4- Consider AGNES ? source of emboli in left MCA ? 5- Pt. is NPO ??? need speech therapy to clear 6- aphasia expressive 7- Lipitor 40 mg will follow Subjective Date of service: 03/13/22 Principal diagnosis: 51-year-old male with known history of HTN admitted for acute CVA s/p TPA Interval history: Alert frustrated due to significant speech problem/aphasia expressive slight right side weakness could not have MRI brain due to ? metal plate in chest Repeat CT brain is suggestive of slight increase in bleeding in left frontal ASA and SQ heparine on hold Echo is 50-55% EF with mild diastolic dysfunction,no bubble study is done LDl#80 US carotid <50% bilateral Objective - Vital Sign Vital Signs - 12hr 03/13/22 03/13/22 03/13/22 00:14 06:00 08:22 Temperature 98.2 F 98.0 F 99.2 F Pulse Rate 74 78 Respiratory 18 18 Rate Blood Pressure 148/86 150/89 168/100 O2 Sat by Pulse 99 95 Oximetry - General Apperance Constitutional: comfortable - EENT EENT: PERRL - Respiratory Respiratory: lungs clear - Cardiovascular Cardiovascular: regular rate, normal S1, normal S2 Extremities: no peripheral edema bilat, no clubbing, cyanosis - Gastrointestinal Gastrointestinal: normoactive bowel sounds - Integumentary Integumentary: normal - Neurologic Cranial nerve examination: PERRL, EOMI, facial droop Speech examination: motor aphasia Detailed motor examination: other (slight residual right side weakness,Right BKA) - Laboratory Findings CBC and BMP: 03/11/22 05:31 03/13/22 04:46 Abnormal Lab Findings: Abnormal Labs 03/09/22 03/09/22 03/09/22 10:18 Unknown Unknown Hgb 16.2 H Hct 47.2 H MCV 99 H MCH 34 H MCHC RDW 15.6 H Lymph % (Auto) [place] % (Auto) 8.8 H INR 0.84 L APTT 22.4 L Thrombin Time 13.9 L Sodium Chloride BUN Glucose POC Glucose 126 H HDL Cholesterol 03/09/22 03/10/22 03/10/22 Unknown 04:43 04:43 Hgb 16.2 H Hct 46.9 H MCV 99 H MCH 34 H MCHC 35 H RDW 15.5 H Lymph % (Auto) 41.5 H [place] % (Auto) 11.5 H INR APTT Thrombin Time Sodium 135 L Chloride BUN 7 L 6 L Glucose 122 H POC Glucose HDL Cholesterol 64 H 03/11/22 03/11/22 03/13/22 05:31 05:31 04:46 Hgb 16.3 H Hct 47.6 H MCV 99 H MCH 34 H MCHC RDW 15.4 H Lymph % (Auto) [place] % (Auto) INR APTT Thrombin Time Sodium 136 L 135 L Chloride 97.9 L BUN 6 L Glucose 101 H 111 H POC Glucose HDL Cholesterol
[2022-03-13] MEDS: amLODIPine 10 MG TAB PO SCH (11:53)
[2022-03-13] MEDS: LOSARTAN 50 MG TAB PO SCH (11:53)
--- NOTE | 2022-03-13 12:57 | Discharge Summary ---
Providers - Providers Date of Admission: 03/09/22 14:52 Date of discharge: 03/13/22 Attending physician: EMMETT SANTIAGO MD 03/09/22 11:39 Consult to Physician [CONS] Urgent Comment: Consulting Provider: LILIANE MCALLISTER Physician Instructions: Reason For Exam: ICU admit/CVA status post tPA 03/09/22 15:06 Consult to Physician [CONS] Routine Comment: Consulting Provider: TAYLOR LACKEY Physician Instructions: Reason For Exam: Acute CVA--S/p TPA 03/09/22 15:38 Occupational Therapy Evaluate and Treat [CONS] Routine Comment: Reason For Exam: Neuro deficits Physical Therapy Evaluation and Treat [CONS] Routine Comment: Reason For Exam: Neuro deficits 03/10/22 07:36 Speech Therapy Evaluation and Treat [CONS] Routine Reason For Exam: CVA 03/11/22 07:21 Consult to Physician [CONS] Urgent Comment: Consulting Provider: CYDNEY SALOMON II Physician Instructions: Reason For Exam: Petechial Hemorrhagic Changes Primary care physician: JOSE COUGHLIN Hospitalization Condition: Serious Disposition: 30 STILL A PATIENT Exam - Constitutional Vitals: Temp Pulse Resp BP Pulse Ox 99.2 F 78 18 168/100 95 03/13/22 08:22 03/13/22 08:22 03/13/22 06:00 03/13/22 08:22 03/13/22 08:22 Plan Care Plan Goals: Please follow-up with your primary care provider and schedule an appointment with Neurology soon as possible. If your symptoms return please come back to the ER. Follow-up with Neurosurgery within 2 weeks. Continue to take Lipitor as prescribed. Please attempt to quit smoking as we discussed it only raises your risk for further strokes. Follow up with: JOSE COUGHLIN MD [Primary Care Provider] - 7 Days Prescriptions: AtorvaSTATin [Lipitor] 40 mg PO QHS 30 Days #30 tablet amLODIPine 10 mg PO DAILY 30 Days #30 tab Losartan [Cozaar] 50 mg PO QDAY 30 Days #30 tab Other Discharge Orders: Speech Therapy (Amb) Location: None Selected
[2022-03-13 13:15] VITALS: BP 149/93
== END 2022-03-13 18:00 | disposition home health service (06) | DRG 62 ==
LOC: ED 10:11 → CC1 14:52 → 4A 03-10 15:53
PROVIDERS: ADMIT Internal Medicine; ATTEND Student in an Organized Health Care Education/Training Program
DX: I63.9 Cerebral infarction, unspecified (principal); G81.94 Hemiplegia, unspecified affecting left nondominant side; I10 Essential (primary) hypertension; R53.1 Weakness; R47.01 Aphasia; E78.5 Hyperlipidemia, unspecified; E66.9 Obesity, unspecified; F17.200 Nicotine dependence, unspecified, uncomplicated
CPT/HCPCS: 36415; 70450; 70496; 70498; 80048; 80053; 80061; 82962; 83036; 85025; 85027; 85610; 85670; 85730; 93005; 93306; 93880; G0378; J3490; C8929; J2704; J2997; Q9967